=== PATIENT | male | born 1960 | race Asian ===

== ENCOUNTER 2018-02-02 15:52 | Emergency (ER) | payer OTHER ==
[2018-02-02 17:37] LABS: % BASOPHILS 1.2 % (0.0-2.0); % EOSINOPHILS 2.4 % (0.0-5.0); % LYMPHOCYTES 38.5 % (20.0-50.0); % MONOCYTES 11.1 % (2.0-10.0); % NEUTROPHILS 46.8 % (40.0-80.0); BASOPHILE ABSOLUTE 0.1 Th/cumm (0-0.2); EOSINOPHILE ABSOLUTE 0.1 Th/cmm (0.1-0.4); HEMATOCRIT 48.3 % (41.0-60); HEMOGLOBIN 16.1 gm/dL (12-16); LYMPHOCYTE ABSOLUTE 2.1 Th/cmm (1.5-3.0); MEAN CELL VOLUME 91.8 fl (80-99); MEAN CORPUSCULAR HEMOGLOBIN 30.5 pg (26.0-30.0); MEAN CORPUSCULAR HGB CONC 33.2 pg (28.0-36.0); MEAN PLATELET VOLUME 7.9 fl; MONOCYTE ABSOLUTE 0.6 Th/cmm (0.3-1.0); NEUTROPHILE ABSOLUTE 2.5 Th/cmm (1.8-8.0); PLATELET COUNT 308 Th/cmm (150-400); RED BLOOD COUNT 5.26 Mil/cmm (4.30-5.70); RED CELL DISTRIBUTION WIDTH 12.1 % (11.5-20.0); WHITE BLOOD COUNT 5.4 Th/cmm (4.8-10.8)
[2018-02-02 17:50] LABS: INR 0.98 (0.5-1.4); PROTHROMBIN TIME (TEST) 10.2 SECONDS (9.5-11.5)
[2018-02-02 18:01] LABS: ALB/GLOB RATIO 1.5 (1.0-1.8); ALBUMIN 4.6 gm/dL (4.2-5.5); ALKALINE PHOSPHATASE 66 U/L (34-104); BILIRUBIN,TOTAL 1.3 mg/dL (0.3-1.0); BUN - UREA NITROGEN 11 mg/dL (7-25); CALCIUM SERUM 9.8 mg/dL (8.6-10.3); CARBON DIOXIDE 24.7 mEq/L (21.0-31.0); CHLORIDE 104 mEq/L (98-107); CREATININE - SERUM 0.9 mg/dL (0.7-1.3); GFR AFRICAN-AMERICAN > 60.0 ml/min (>90); GFR NON AFRICAN-AMERICAN > 60.0 ml/min; GLUCOSE 90 mg/dL (70-105); MAGNESIUM 2.1 mg/dL (1.9-2.7); PHOSPHOROUS 3.2 mg/dL (2.5-5.0); POTASSIUM SERUM 3.7 mEq/L (3.5-5.1); SGOT 20 U/L (13-39); SGPT/ALT 24 U/L (7-52); SODIUM SERUM 139 mEq/L (136-145); TOTAL PROTEIN,SERUM 7.7 gm/dL (6.0-8.3)
--- NOTE | 2018-02-06 17:23 | ER Physician Documentation ---
DATE OF SERVICE: 02/02/2018 CHIEF COMPLAINT: Bright red blood per rectum. HISTORY OF PRESENT ILLNESS: This is a 57-year-old male, who presents complaining of blood in his stools for 2 weeks. He says the blood is bright red. His last passage of blood per rectum was at 9:00 a.m. this morning. Denies any pain associated with it. He does have a scheduled colonoscopy for 03/17. He is hoping to get in sooner. He does have a history of prostate cancer with radiation performed in 01/2017. PAST MEDICAL HISTORY: Remarkable for prostate cancer as well as benign prostatic hypertrophy, and prediabetes. REVIEW OF SYSTEMS: Positive for bright red blood per rectum. The patient denies any history of nausea, vomiting, diarrhea, constipation, fevers, or chills. FAMILY HISTORY: Positive for colon cancer in his brother, who is having surgery this week that is already metastasized to liver. The patient is very concerned about the fact that he might have cancer himself. PHYSICAL EXAMINATION: GENERAL: The patient is well-developed, well-nourished male, in no apparent distress. LUNGS: Clear to auscultation bilaterally. COR: Regular rate and rhythm. ABDOMEN: Benign. Positive bowel sounds, nontender, nondistended. ORTHOSTATICS: He did not tilt positive. RECTAL: I deferred a rectal exam on him given the fact that he did say he did pass bright red blood per rectum. Patient also preferred not to undergo a rectal exam. LABORATORY DATA: Initial hematocrit 48.3. Coagulation studies are within normal limits. Of note, while interviewing the patient, I found that he is 4 blood thinners that he did not know he was on. Vitamin E is a blood thinner and he is on that. Aspirin is a blood thinner and he is on that. [place] 3 fatty acids and he is on that. He has taken Advil in the last 2 weeks for occasional headaches and that is also blood thinner. ASSESSMENT/PLAN: Stable lower gastrointestinal bleed, scheduled for colonoscopy. The patient was told to return if he develops any further blood per rectum. Of note, the patient had only one incident in the morning and no other incidents status post this. So, I feel the patient is completely stable and hemodynamically stable to go home and to call for colonoscopy in the near future as well as 03/17. [facility]# [id number] MTDD
== END 2018-02-02 18:20 | disposition home or self-care (01) ==
LOC: ER 15:52
DX: K92.2 Gastrointestinal hemorrhage, unspecified (principal)
CPT/HCPCS: 36415-UA; 80053-TC; 83735-TC; 84100-TC; 85025-TC; 85610-TC; Z7502